=== PATIENT | male | born 1975 | race Caucasian/White ===

== ENCOUNTER 2016-10-24 17:38 | Emergency (ER) | payer OTHER ==
[~2016-10-24] VITALS: Ht 165.1 cm; Wt 93.0 kg
[2016-10-24 18:38] LABS: BLOOD UREA NITROGEN 11 mg/dL (7-18)
[2016-10-24 19:45] VITALS: BP 164/112
== END 2016-10-24 19:48 | disposition home or self-care (01) ==
LOC: ED 19:42
DX: S86.112A Strain of other muscle(s) and tendon(s) of posterior muscle group at lower leg level, left leg, initial encounter (principal); I10 Essential (primary) hypertension; X58.XXXA Exposure to other specified factors, initial encounter; Y93.89 Activity, other specified; Y92.89 Other specified places as the place of occurrence of the external cause; Y99.9 Unspecified external cause status
CPT/HCPCS: 36415; 71020; 80048; 82040; 85025; 93005; 99285